=== PATIENT | male | born 1985 | race African-American/Black ===

== ENCOUNTER 2016-10-31 08:35 | Observation (INO) | payer BC, MEDICAID, OTHER ==
[2016-10-31] MEDS ORDERED: SUCCINYLCHOLINE CHLORIDE INJ 200 MG/10 ML VIAL ONE (09:14)
[2016-10-31] MEDS ORDERED: GLYCOPYRROLATE INJ 0.4 MG/2 ML VIAL ONE (09:14)
[2016-10-31] MEDS ORDERED: ROCURONIUM BROMIDE INJ 50 MG/5 ML VIAL IV ONE (09:14)
[2016-10-31] MEDS ORDERED: DEXAMETHASONE SOD PHOSPHATE INJ 4 MG/1 ML VIAL ONE (09:14)
[2016-10-31] MEDS ORDERED: ONDANSETRON HCL INJ/PF 4 MG/2 ML SDV ONE (09:14)
[2016-10-31] MEDS ORDERED: NEOSTIGMINE METHYLSULFATE 10 MG/10 ML VIAL ONE (09:14)
[2016-10-31] MEDS ORDERED: LIDOCAINE 2% INJ-PF (20 MG/ML) 10 ML AMPUL ONE (09:14)
[2016-10-31] MEDS ORDERED: METOCLOPRAMIDE HCL INJ/PF 10 MG/2 ML SDV ONE (09:14)
[2016-10-31] MEDS ORDERED: NORMAL SALINE 1000 ML 1,000 ML IV ONE ×2 (09:32→11:57)
[2016-10-31 10:05] LABS: ABSOLUTE BASOPHILS # (AUTO) 0.1 10^3/uL (0.0-0.2); ABSOLUTE EOSINOPHILS # (AUTO) 0.3 10^3/uL (0.0-0.6); ABSOLUTE LYMPHOCYTES (AUTO) 1.7 10^3/uL (0.5-4.7); ABSOLUTE MONOCYTES (AUTO) 0.7 10^3/uL (0.1-1.4); ABSOLUTE NEUT (AUTO) 9.9 10^3/uL (1.7-8.2); BASOPHILS % (AUTO) 0.5 % (0-2); EOSINOPHILS % (AUTO) 2.4 % (0-6); HEMATOCRIT 45.3 % (37.9-51.0); HEMOGLOBIN 15.3 g/dL (13.5-17.0); HGB HCT DIFFERENCE 0.6; LYMPHOCYTES % (AUTO) 13.8 % (13-45); MEAN CORPUSCULAR HEMOGLOBIN 32.1 pg (27.0-33.4); MEAN CORPUSCULAR HGB CONC 33.8 g/dL (32.0-36.0); MEAN CORPUSCULAR VOLUME 95 fl (80-97); MONOCYTES % (AUTO) 5.5 % (3-13); RED BLOOD COUNT 4.77 10^6/uL (4.35-5.55); RED CELL DISTRIBUTION WIDTH 13.8 % (11.5-14.0); SEGMENTED NEUTROPHILS % (AUTO) 77.8 % (42-78); WHITE BLOOD COUNT 12.7 10^3/uL (4.0-10.5)
[2016-10-31 10:18] LABS: ALANINE AMINOTRANSFERASE 48 U/L (21-72); ALBUMIN 4.9 g/dL (3.5-5.0); ALKALINE PHOSPHATASE 109 U/L (38-126); ANION GAP 10 (5-19); ASPARTATE AMINO TRANSFERASE 24 U/L (17-59); BILIRUBIN,DIRECT 0.3 mg/dL (0.0-0.4); BLOOD UREA NITROGEN 9 mg/dL (7-20); CALCIUM 9.7 mg/dL (8.4-10.2); CARBON DIOXIDE 29 mmol/L (22-30); CHLORIDE 101 mmol/L (98-107); CREATININE RESULT 0.95 mg/dL (0.52-1.25); GLUCOSE 91 mg/dL (75-110); LIPASE 91.7 U/L (23-300); POTASSIUM 4.4 mmol/L (3.6-5.0); TOTAL PROTEIN 8.6 g/dL (6.3-8.2)
[2016-10-31] MEDS ORDERED: MORPHINE SULFATE 10 MG/ML INJ IV ONE ×2 (11:31→15:09)
[2016-10-31] MEDS ORDERED: ONDANSETRON HCL INJ/PF 4 MG/2 ML SDV IV ONE ×2 (11:31→15:09)
[2016-10-31 13:27] LABS: APPEARANCE,URINE CLEAR; BILIRUBIN,URINE NEGATIVE (NEGATIVE); GLUCOSE, URINE NEGATIVE (NEGATIVE); KETONES,URINE NEGATIVE (NEGATIVE); LEUKOCYTE ESTERASE,URINE NEGATIVE (NEGATIVE); NITRITE,URINE NEGATIVE (NEGATIVE); PROTEIN,URINE NEGATIVE (NEGATIVE); URINE SPECIFIC GRAVITY 1.003; UROBILINOGEN,URINE NEGATIVE mg/dL (<2.0)
--- NOTE | 2016-10-31 14:33 | RADIOLOGY REPORT (SQ) ---
EXAM DESCRIPTION: CT ABD/PELVIS WITH IV ORAL COMPLETED DATE/TIME: 10/31/2016 2:11 pm REASON FOR STUDY: ruq pain COMPARISON: None. TECHNIQUE: CT scan of the abdomen and pelvis performed using helical scanning technique with dynamic intravenous contrast injection. No oral contrast. Images reviewed with lung, soft tissue, and bone windows. Reconstructed coronal and sagittal MPR images reviewed. Delayed images for evaluation of the urinary system also acquired. All images stored on PACS. All CT scanners at this facility use dose modulation, iterative reconstruction, and/or weight based d osing when appropriate to reduce radiation dose to as low as reasonably achievable (ALARA). [facility]: Dose Right [facility]: CareDose [facility]: Dose Right [facility]: Teradose 4D [facility]: Find That File CONTRAST TYPE AND DOSE: contrast/concentration: Isovue 370.00 mg/ml; Total Contrast Delivered: 100.0 ml; Total Saline Delivered: 70.1 ml 100 mL Isovue 370 intravenously. RENAL FUNCTION: Creatinine 0.95. RADIATION DOSE: Up-to-date CT equipment and radiation dose reduction techniques were employed. CTDIv ol: 15.9 - 20.0 mGy. DLP: 2163 mGy-cm.. LIMITATIONS: None. FINDINGS: LOWER CHEST: Minor linear atelectasis left lung base. Likely small hiatus hernia. LIVER: Normal size. No masses. No dilated ducts. SPLEEN: Normal size. No focal lesions. PANCREAS: No masses. No significant calcifications. No adjacent inflammation or peripancreatic fluid collections. Pancreatic duct not dilated. GALLBLADDER: No identified stones by CT criteria. No inflammatory changes to suggest cholecystitis. ADRENAL GLANDS: No significant masses or asymmetry. RIGHT KIDNEY AND URETER: No solid masses. No significant calcification. No hydronephrosis or hydroure ter. LEFT KIDNEY AND URETER: No solid masses. No significant calcification. No hydronephrosis or hydrouret er. AORTA AND VESSELS: No AAA. RETROPERITONEUM: No retroperitoneal adenopathy, hemorrhage or masses. BOWEL AND PERITONEAL CAVITY: No masses or inflammatory changes. No free fluid or peritoneal masses. APPENDIX: Mild thickening of the appendix, concerning for possible appendicitis. Correlate clinical ly. The appendix is 10 mm in diameter. No periappendiceal inflammatory change. Appendix does not f ill with oral contrast. PELVIS: No mass. No free fluid. Normal bladder. ABDOMINAL WALL: No masses. No hernias. BONES: No significant or acute findings. OTHER: No other significant finding. IMPRESSION: Mild thickening of the appendix, concerning for appendicitis. Correlate clinically. TECHNICAL DOCUMENTATION: JOB ID: [id number] Quality ID # [id number]: Final reports with documentation of one or more dose reduction techniques (e.g., Au tomated exposure control, adjustment of the mA and/or kV according to patient size, use of iterative reconstruction technique) 2010 [employer]- All Rights Reserved
[2016-10-31] MEDS ORDERED: AMPICILLIN SOD/SULBACTAM 3 GM VIAL IV ONE (14:39)
[2016-10-31] MEDS ORDERED: BUPIVACAINE HCL 0.25 % INJ/PF (2.5 MG/1 ML) 30 ML VIAL ONE (15:12)
--- NOTE | 2016-10-31 15:12 | ER Document Report ---
ED General - General Chief Complaint: Abdominal Pain Stated Complaint: STOMACH PAIN Time Seen by Provider: 10/31/16 09:31 TRAVEL OUTSIDE OF THE [place] IN LAST 30 DAYS: No - HPI Patient complains to provider of: Right lower quadrant abdominal pain Notes: Patient coming in right lower quadrant abdominal pain intermittently for the last few days. Patient states periumbilical left lower quadrant pain now is localized to right lower quadrant. Patient states no nausea no vomiting some diarrhea. Denies any recent travel denies any recent trauma. Patient has fevers at home. States difficulty moving the right leg due to pain. Patient states n.p.o. since 1900 hrs. night prior to arrival - Related Data Allergies/Adverse Reactions: No Known Allergies Allergy (Unverified 10/31/16 08:42) Home Medications: Current Home Medications No Home Medications 10/31/16 [History] Past Medical History - Social History Smoking Status: Former Smoker Frequency of alcohol use: None Drug Abuse: None Family History: Reviewed & Not Pertinent Patient has suicidal ideation: No Patient has homicidal ideation: No Renal/ Medical History: Denies: Hx Peritoneal Dialysis Review of Systems - Review of Systems Constitutional: No symptoms reported EENT: No symptoms reported Cardiovascular: No symptoms reported Respiratory: No symptoms reported Gastrointestinal: Abdominal pain Genitourinary: No symptoms reported Male Genitourinary: No symptoms reported Musculoskeletal: No symptoms reported Skin: No symptoms reported Hematologic/Lymphatic: No symptoms reported Neurological/Psychological: No symptoms reported -: Yes All other systems reviewed and negative Physical Exam - Vital signs Vitals: Temp Pulse Resp BP Pulse Ox 98.7 F 80 18 130/79 H 99 10/31/16 08:39 10/31/16 08:39 10/31/16 08:39 10/31/16 08:39 10/31/16 08:39 Interpretation: Normal - General General appearance: Appears well, Alert - HEENT Head: Normocephalic, Atraumatic Eyes: Normal Pupils: PERRL - Respiratory Respiratory status: No respiratory distress Chest status: Nontender Breath sounds: Normal Chest palpation: Normal - Cardiovascular Rhythm: Regular Heart sounds: Normal auscultation Murmur: No - Abdominal Inspection: Normal Distension: No distension Bowel sounds: Normal Tenderness: Tender - Tenderness to palpation right lower quadrant with rebound and guarding. Patient has a positive psoas sign and obturator sign., Price's sign. No: Guarding, Rebound Organomegaly: No organomegaly - Back Back: Normal, Nontender - Extremities General upper extremity: Normal inspection, Nontender, Normal color, Normal ROM , Normal temperature General lower extremity: Normal inspection, Nontender, Normal color, Normal ROM , Normal temperature, Normal weight bearing. No: Lisa's sign - Neurological Neuro grossly intact: Yes Cognition: Normal Orientation: AAOx4 [place] Coma Scale Eye Opening: Spontaneous Monty Coma Scale Verbal: Oriented Monty Coma Scale Motor: Obeys Commands [place] Coma Scale Total: 15 Speech: Normal Motor strength normal: LUE, RUE, LLE, RLE Sensory: Normal - Psychological Associated symptoms: Normal affect, Normal mood - Skin Skin Temperature: Warm Skin Moisture: Dry Skin Color: Normal Course - Re-evaluation Re-evalutation: 10/31/16 15:11 Patient coming in for right lower quadrant abdominal pain with CT scan consistent with possible appendicitis clinical evaluation is consistent with acute appendicitis. Antibiotics were given patient's was updated of results the surgeon was contacted at this time. - Vital Signs Vital signs: Temp Pulse Resp BP Pulse Ox 97.4 F 68 18 124/61 98 10/31/16 14:40 10/31/16 14:40 10/31/16 14:40 10/31/16 14:40 10/31/16 14:40 - Laboratory Result Diagrams: 10/31/16 09:54 10/31/16 09:54 Laboratory results interpreted by me: 10/31/16 10/31/16 09:54 09:54 WBC 12.7 H Absolute Neutrophils 9.9 H Total Protein 8.6 H Discharge - Discharge Clinical Impression: Acute appendicitis Qualifiers: Acute appendicitis type: with localized peritonitis Qualified Code(s): K35.3 - Acute appendicitis with localized peritonitis Condition: Good Disposition: ADMITTED OBSERVATION Admitting Provider: Surgicalist - Nuris Unit Admitted: Surgical Floor
[2016-10-31] MEDS ORDERED: FENTANYL CITRATE INJ/PF 100 MCG/2 ML AMPUL ONE (15:57)
[2016-10-31] MEDS ORDERED: MIDAZOLAM 2 MG/2 ML INJ ONE (15:57)
--- NOTE | 2016-10-31 15:57 | HISTORY AND PHYSICAL E ---
History and Physical NAME: ZACH MARIO : 1985 AGE: 31Y ADMITTED: 10/31/2016 ROOM: CHIEF COMPLAINT: Abdominal pain. HISTORY OF PRESENT ILLNESS: This is a 31-year-old -[place] male who complained of vague diffuse abdominal pain with loose bowel movement for the past 2 days. This morning at 4 a.m. woke up with severe pains in the right lower quadrant. He went to the emergency room where a CAT scan of the abdomen revealed acute appendicitis. PAST MEDICAL HISTORY: Unremarkable. SURGICAL HISTORY: Molars removed in the past. ALLERGIES: None known. FAMILY HISTORY: Father just recently diagnosed to have diabetes. Other than that, it is unremarkable. SOCIAL HISTORY: Denies smoking, drinking, or recreational drug use. REVIEW OF SYSTEMS: Denies any chest pain or shortness of breath. No dysuria. Admits to having diarrhea. Denies any nausea or vomiting. Abdominal pains more on the right lower quadrant since this morning but prior to this was more diffuse and vague. No hearing or visual problems. No seizures. The rest of the systems are reviewed and unremarkable. PHYSICAL EXAMINATION: GENERAL: Well developed, well nourished, 31-year-old -[place] male. Alert and oriented. Complaining of right lower quadrant pain. HEENT: Neck is supple, no thyromegaly. LUNGS: Clear. HEART: Regular sinus rhythm. ABDOMEN: Soft with tenderness in the right lower quadrant with rebound. EXTREMITIES: No edema. IMPRESSION: Acute appendicitis. PLAN: Start IV antibiotics and hydration. Schedule for laparoscopic appendectomy today. DICTATING PHYSICIAN: JENELLE MATTSON M.D. [id number] PHY#: [id number] ID: [id number] JOB#: [id number] ACCT: [id number] cc:JENELLE MATTSON M.D. [facility], [place]
[2016-10-31] MEDS ORDERED: PROPOFOL INJ 200 MG/20 ML VIAL IV ONE (15:58)
[2016-10-31] MEDS ORDERED: IBUPROFEN INJ 800 MG/8 ML VIAL IV ONE (15:58)
[2016-10-31] MEDS ORDERED: HYDROMORPHONE HCL INJ/PF 2 MG/ML AMPULE ONE (15:58)
[2016-10-31] MEDS ORDERED: ACETAMINOPHEN 100 ML IV ONE (15:58)
[2016-10-31] MEDS ORDERED: ONDANSETRON HCL INJ/PF 4 MG/2 ML SDV IV PRN ×2 (16:45→17:46)
[2016-10-31] MEDS ORDERED: MEPERIDINE HCL/PF INJ 25 MG/1 ML DISP.SYRIN IV PRN (16:45)
[2016-10-31] MEDS ORDERED: DIPHENHYDRAMINE HCL 50 MG/ML VIAL IV PRN (16:45)
[2016-10-31] MEDS ORDERED: FENTANYL CITRATE INJ/PF 100 MCG/2 ML AMPUL IV PRN ×3 (16:45)
[2016-10-31] MEDS ORDERED: MORPHINE SULFATE 10 MG/ML INJ IV PRN (16:45)
[2016-10-31] MEDS ORDERED: OXYCODONE-ACETAMINOPHEN 5-325 MG TABLET PO PRN ×2 (16:45)
[2016-10-31] MEDS ORDERED: PROMETHAZINE HCL INJ 25 MG/1 ML VIAL IV PRN ×2 (16:45)
[2016-10-31] MEDS ORDERED: HYDROMORPHONE HCL INJ/PF 2 MG/ML AMPULE IV PRN (17:45)
[2016-10-31] MEDS ORDERED: NORMAL SALINE 1000 ML 1,000 ML IV PRN (17:47)
--- NOTE | 2016-10-31 17:57 | OPERATIVE REPORT E ---
Operative Report NAME: ZACH MARIO : 1985 AGE: 31Y DATE OF SURGERY: 10/31/2016 ROOM: PREOPERATIVE DIAGNOSIS: Acute appendicitis. POSTOPERATIVE DIAGNOSIS: Acute appendicitis. PROCEDURE: Laparoscopic appendectomy. SURGEON: JENELLE MATTSON M.D. ANESTHESIA: General. INDICATIONS: This is a 31-year-old male with abdominal pains, localized in the right lower quadrant this morning, and a CAT scan showed acute appendicitis. DESCRIPTION OF PROCEDURE: Under adequate general anesthesia, the patient was placed in supine position. The abdomen was prepped and draped in the usual sterile fashion. An appropriate timeout was done. Next, an infraumbilical, elliptical incision was made and the fascia identified and divided and the Tri trocar inserted into the abdominal cavity and insufflated to a pressure of 15 mmHg. Next, two other trocars were placed, a 5 mm in the suprapubic and a 12 mm in the left lower quadrant, under direct vision. The appendix was then identified and subsequently grasped and the mesoappendix divided with the harmonic roxy. The base of the appendix was subsequently identified and subsequently stapled with an Endo LIANE. The appendix was then placed in a bag and pulled out through the umbilical port. Next, the stump was inspected and there was a little oozing on the lateral aspect and this was controlled with a single hemoclip. Further irrigation of the area was done and no other evidence of other bleeding noted. Next, the trocars were removed and no evidence of bleeding from the trocar sites noted. The fascial defect of the infraumbilical area was then closed with a [id number] suture using 1 PDS. Marcaine was then injected through the fascia and all the skin incisions closed with running subcuticular closure using 4-0 Vicryl undyed. Sterile dressings were placed over the operative site. Appendix noted to be inflamed. The patient tolerated the procedure well and was brought to recovery in satisfactory condition. DICTATING PHYSICIAN: JENELLE MATTSON M.D. [id number] PHY#: [id number] ID: [id number] JOB#: [id number] ACCT: [id number] cc:JENELLE MATTSON M.D. >
[2016-10-31] MEDS: OXYCODONE-ACETAMINOPHEN 5-325 MG TABLET PO PRN (19:38)
[2016-10-31] MEDS: AMPICILLIN SODIUM/SULBACTAM NA 3 GM in NORMAL SALINE 100 ML IV SCH (21:25)
[2016-11-01] MEDS: OXYCODONE-ACETAMINOPHEN 5-325 MG TABLET PO PRN ×2 (02:23→08:42)
[2016-11-01] MEDS: AMPICILLIN SODIUM/SULBACTAM NA 3 GM in NORMAL SALINE 100 ML IV SCH (05:38)
[2016-11-01] MEDS ORDERED: ENOXAPARIN SODIUM INJ 40 MG/0.4 ML DISP.SYRIN SUBCUT SCH (10:00)
[2016-11-01 10:40] VITALS: BP 124/61
--- NOTE | 2016-11-01 11:42 | DISCHARGE SUMMARY E ---
Discharge Summary NAME: ZACH MARIO : 1985 AGE: 31Y ADMITTED: 10/31/2016 DISCHARGED: 11/01/2016 FINAL DIAGNOSIS: Acute appendicitis. PROCEDURE DONE: Laparoscopic appendectomy 10/31/2016. SUMMARY: This is a 31-year-old male who complained of abdominal pains, and a CAT scan of the abdomen in the ED showed acute appendicitis. He was tender in the right lower quadrant with rebound. He was taken to the OR on 10/31/2016 and laparoscopic appendectomy was performed for acute appendicitis. Postoperatively the patient did very well and tolerating diet on the day of discharge. The patient was advised not to do any lifting more than 15 pounds for the next 2 weeks, and a letter to his employer was given to the patient. Prescription for Percocet to take 1 every 4 hours as needed for pain was given. The patient is to be followed up in the Surgical Clinic in about 1-2 weeks. DICTATING PHYSICIAN: JENELLE MATTSON M.D. [id number] PHY#: [id number] ID: [id number] JOB#: [id number] ACCT: [id number] cc:Pee TY MD, M.D. [facility],
== END 2016-11-01 10:54 | disposition home or self-care (01) ==
LOC: ER 08:35 → 2N 15:46
PROVIDERS: ATTEND Surgery
PROC: 0DTJ4ZZ Resection of Appendix, Percutaneous Endoscopic Approach (ICD-10-PCS; principal; 2016-10-31 16:00)
DX: K35.80 Unspecified acute appendicitis (principal); K38.8 Other specified diseases of appendix; Z87.891 Personal history of nicotine dependence
CPT/HCPCS: 44970; 99285; 96361; 96374; 96375; 36415; 87040; 83690; 85025; 80053; 81001; 88304 ×2; 74177; G0378 ×2; J2250; J3490 ×2; J1100; J3010; J0295 ×2; J2765; J2270; J1650; J1170; J0330; J2405; J7030 ×2; J2704; J0131; J1741; 840